=== PATIENT | female | born 2000 | race Two or more races ===

== ENCOUNTER 2024-11-14 02:52 | Inpatient (IN) ==
[2024-11-14 03:14] VITALS: BMI 31.1
[2024-11-14 03:14] LABS: BILIRUBIN,URINE NEGATIVE (NEGATIVE); BLOOD/HEMOGLOBIN,URINE 5+ (NEGATIVE); GLUCOSE, URINE NEGATIVE (NEGATIVE); KETONES,URINE NEGATIVE (NEGATIVE); LEUKOCYTE ESTERASE ,URINE NEGATIVE (NEGATIVE); NITRITES,URINE NEGATIVE (NEGATIVE); PROTEIN,URINE 3+ (NEGATIVE); UROBILINOGEN,URINE 1+ (NORMAL)
[2024-11-14 03:20] LABS: APPEARANCE,URINE SLIGHTLY HAZY (CLEAR); BACTERIA,URINE TRACE /HPF (NEGATIVE); COLOR,URINE DARK YELLOW (YELLOW); RBC,URINE 30-50 /HPF (0-3); SQUAMOUS EPITHELIAL CELL,UR RARE /HPF (NEGATIVE)
[2024-11-14 03:21] LABS: AMNISURE ROM TEST THERE IS A RUPTURE (NO RUPTURE)
[2024-11-14 03:49] LABS: BASOPHILS % (AUTO) 0.7 % (0.2-1.0); EOSINOPHILS # (AUTO) 0.1 x10^3/uL (0.0-0.2); EOSINOPHILS % (AUTO) 0.9 % (0.9-2.9); HEMATOCRIT 38.5 % (36.0-47.0); HEMOGLOBIN 13.5 g/dL (12.0-16.0); LYMPHOCYTES # (AUTO) 1.6 X10^3/uL (1.3-2.9); LYMPHOCYTES % (AUTO) 24.6 % (21.0-51.0); MEAN CORPUSCULAR HEMOGLOBIN 31.8 pg (27.0-34.0); MEAN CORPUSCULAR VOLUME 90.7 fL (80.0-100.0); MEAN PLATELET VOLUME 10.2 fL (7.4-11.0); MONOCYTES # (AUTO) 0.6 x10^3/uL (0.3-0.8); MONOCYTES % (AUTO) 8.9 % (0.0-13.0); NEUTROPHILS # (AUTO) 4.3 x10^3/uL (2.2-4.8); NEUTROPHILS % (AUTO) 64.9 % (42.0-75.0); PLATELET COUNT 153 X10^3/uL (150.0-450.0); RED BLOOD COUNT 4.24 X10^6/uL (3.5-5.4); RED CELL DISTRIBUTION WIDTH 13.7 % (11.6-16.5); WHITE BLOOD COUNT 6.6 X10^3/uL (3.6-10.0)
[2024-11-14 03:59] LABS: ALANINE AMINOTRANSFERASE 31 Units/L (12-78); ALBUMIN 2.7 g/dL (3.4-5.0); ALKALINE PHOSPHATASE 266 Units/L (46-116); ASPARTATE AMINO TRANSFERASE 23 Units/L (15-37); BLOOD UREA NITROGEN 6 mg/dL (7-18); CHLORIDE 100 mmol/L (98-107); COR NA(FOR HYPERGLY) 136 mmol/L (136-145); CREATININE 0.56 mg/dL (0.55-1.02); GLUCOSE 123 mg/dL (65-99); POTASSIUM 3.7 mmol/L (3.5-5.1); SODIUM 135 mmol/L (136-145); TOTAL PROTEIN 7.1 g/dL (6.4-8.2); eGFR NON BLACK RACES > 60 (>60)
[2024-11-14] MEDS ORDERED: ZOFRAN INJ 4 MG VIAL IVP PRN (04:26)
[2024-11-14] MEDS ORDERED: REGLAN INJ 10 MG VIAL IVP PRN (04:26)
[2024-11-14] MEDS: LR 1,000 ML IV 1,000 ML IV SCH (05:00)
[2024-11-14] MEDS: NUBAIN INJ 20 MG AMP IVP PRN (05:12)
[2024-11-14] MEDS: NUBAIN INJ 10 MG AMP ONE ×2 (06:22→08:45)
[2024-11-14] MEDS: OXYTOCIN 20 UNIT/1,000 ML-NS 20 UNIT/1,000 ML PLAST..BAG IV PRN (08:15)
[2024-11-14] MEDS: NS 1,000 ML IV 1,000 ML ONE ×2 (08:15→13:09)
[2024-11-14] MEDS: LR 1,000 ML IV 1,000 ML IV ONE ×3 (08:48→10:18)
[2024-11-14] MEDS: PITOCIN ONE ×2 (08:51→13:09)
[2024-11-14] MEDS: NAROPIN EPIDURAL 0.2% EPI PRN (10:04)
[2024-11-14] MEDS: FENTANYL VIAL INJ 100 mcg ONE (10:04)
[2024-11-14] MEDS: NAROPIN EPIDURAL 0.2% 100 ML ONE (10:04)
[2024-11-14] MEDS: PITOCIN IVP ONE (12:15)
[2024-11-14] MEDS ORDERED: DERMOPLAST PAIN RELIEF SPRAY TOP PRN (13:12)
[2024-11-14] MEDS ORDERED: AMBIEN PO PRN (13:12)
[2024-11-14] MEDS: MOTRIN TAB 800 MG PO PRN (19:14)
[2024-11-15 05:00] LABS: HEMATOCRIT 29.1 % (36.0-47.0); HEMOGLOBIN 10.6 g/dL (12.0-16.0)
[2024-11-15 05:02] VITALS: RESP 18
[2024-11-15 07:59] VITALS: PULSE 69
[2024-11-15] MEDS: MILK OF MAGNESIA PO PRN (08:23)
[2024-11-15] MEDS: PRENATAL PLUS PO SCH (08:23)
[2024-11-15] MEDS ORDERED: NS 100 ML IV 100 ML with VENOFER 100 MG IV ONE (09:32)
[2024-11-15 12:09] VITALS: BP 129/88; TEMP 97.5; O2SAT 99
== END 2024-11-15 15:25 | disposition home or self-care (01) | DRG 807 ==
LOC: ER 02:52 → LD 04:10 → MED/SURG 14:25
PROVIDERS: ADMIT Obstetrics & Gynecology Obstetrics; ATTEND Obstetrics & Gynecology Obstetrics